=== PATIENT | male | born 1935 | race Caucasian/White ===

== ENCOUNTER 2021-04-03 04:04 | Inpatient (IN) | payer OTHER ==
[~2021-04-03] VITALS: Ht 182.9 cm; Wt 73.3 kg
--- NOTE | ~2021-04-03 | HC ---
[facility] [place] [address] CONSULTATION Name: MAME CARDONA Room #: 205-P ADM IN M.R.#: [id number] Admission: 04/03/21 Attend Phys: Len Coon MD Discharge: Date of : 37 Report #: [id number] THIS REPORT FOR: cc: Adrianna Patel MD, Amir R. MD Khosla,Alon Stack MD ~ DATE OF SERVICE: 04/03/2021 HISTORY OF PRESENT ILLNESS: This 86-year-old male patient was here, was evaluated by me for stroke-like symptoms. The patient is a very poor historian. In fact, he has no significant memory. I initially talked to him and subsequently was able to reach the patient's and talked to her. As I understand, this patient was admitted to [facility] in [place] in the middle of the last year. He had passed out and was confused. He was in the hospital for several days. As I understand from the , they did not come up with any diagnosis on this patient. He had another episode of passing out spell. He becomes confused after those passing out spells and he has been confused and last seen well was yesterday. He is on multiple medications, but I do not have the list of the medication this patient is on. REVIEW OF SYSTEMS: From the , she said he is losing some memory. He will not remember something which he should remember. When I asked her if he usually remember months and dates, she says he usually does. There was some question of aphasia when this patient came in. Presently, he does not talk much, but can form some words, but he is not even oriented. That makes the history taking pretty difficult. He did not complain to me any eye, ENT, cardiac, respiratory, GI, , musculoskeletal, constitutional, dermatological, hematological, psychiatric, throat, allergic symptom associated with present symptomatology. PAST MEDICAL HISTORY: Positive for episodes of passing out. FAMILY HISTORY: Negative for congenital epilepsy. SOCIAL HISTORY: The says the patient does not smoke or drink any alcohol. PHYSICAL EXAMINATION: The patient's examination indicates he is alert. He is responsive. He can talk to me, but he did not tell me what month it is, what date is, what hospital he is in. Cranial nerve examination 2-12 was carried out. It is difficult for me to tell, but I do not see any gross facial palsy in this patient. He moves both sides and looks like he moves them symmetrical. He has antigravity and anti-resistance movement, but tough to tell whether that is normal or somewhat diminished. I tried to do the position sense, either he does not understand the instructions or does not have a position sense, I do not think he understands the instructions. He did not understand the instruction even to do the cerebellar sign. There is no meningeal sign. He did not cooperate with the fundus examination. His tone looks symmetrical. Cardiac [address] [address] CONSULTATION Name: MAME CARDONA Room #: 205-P ADM IN M.R.#: [id number] Admission: 04/03/21 Attend Phys: Len Coon MD Discharge: Date of : 37 Report #: [id number] examination does appear to be showing irregularity. I talked to the patient's nurse and she indicated that the patient is showing multiple ectopics on the monitor. He does not have any respiratory difficulty. His pulses are difficult to feel, but he does not have any edema, cyanosis, or jaundice. No thyroid mass. It looks like his hearing and vision is adequate. Blood pressure is 107/52, it has gone lower than that, respiration is 20, pulse is 82. LABORATORY DATA: Indicate a white count of 16.4. He has a protein in the urine and for some reason, he is now on prednisone. Difficult to tell if WBC increase is because of the prednisone or not. IMPRESSION: Pretty difficult to form in this patient. He needs further workup to see what the cause of his passing out spell is. I think we will evaluate him for stroke by doing an MRI if he cooperates. His CT angiogram was suboptimal and difficult to tell, so I am going to do a carotid Doppler in this patient. We will get an EEG done. We will get a TSH, vitamin B12 done and rest of the workup will depend upon the MRI and other testing. I discussed that with the patient and the and I asked him to get his records from [facility]. We will follow this patient, but presently multiple things need to be addressed in this patient and we will do that after the MRI is available. Thank you very much for this referral. By: [id number] 0031 Alon Vargas MD /nt
--- NOTE | ~2021-04-03 | EMS ---
[address] [address] EMS Patient Care Report Name: MAME CARDONA Room #: REG VANNESA Rollins#: [id number] Admission: 04/03/21 Attend Phys: Discharge: Date of : 37 Report #: [id number] THIS REPORT FOR: //name// Report Transmitted: 04/03/2021 03:36 EMS Care Summary [facility] MED-ACT Incident [id number] @ 04/03/2021 03:12 Incident Location [address] [place] [address] Patient MAME CARDONA Male, 86 Years 1935 Patient Address [address] [place] [address] Patient History Hyperlipidemia, Patient Allergies No known allergies, Patient Medications Atorvastatin, Finasteride, Prednisone, Methotrexate, Chief Complaint "I found him on the shower floor." Disposition Transported No Lights/[place] Dispatch Reason [place] Transported To [facility] Narrative History: Pt's reports she found the pt on the floor in the shower, unable to get up, at 0300 this morning. Pt's reports she last saw the pt at approximately 2300 last night as he finished watching the [employer] basketball game. Pt reports he does not know how he ended up on the floor in the shower. Pt [address] [address] EMS Patient Care Report Name: MAME CARDONA Room #: REG VANNESA Rollins#: [id number] Admission: 04/03/21 Attend Phys: Discharge: Date of : 37 Report #: [id number] reports he is not in any pain. Pt's states the pt does not appear to be responding as he normally does. Pt's reports the pt is not on any blood thinners. Pt denies any shortness of breath, nausea, pain, or other recent illness. No other complaints noted at this time. Assessment: Pt was found seated in the corner of the shower, leaning on his right side against the wall. Pt initially has asymmetrical strength in his upper extremities, and a R-sided facial droop. Pt ABCs intact. Pt was confused, but alert. See assessment tab for detailed physical exam findings and pertinent negatives. Treatment: Primary. Pt lifted from floor to seated position on toilet. VS. HPI. Physical exam. PMH. Pt lifted to EMS stretcher and secured in semi-mendez's position. In ambulance IV attempt x1 unsuccessful. 12-lead. Pt has improvement to strength in R upper extremity. Reassessment shows pt negative for arm drift on [place] stroke scale. Transport: En route, continue with on-going assessment. IV established 20g in pt's L wrist. [place] determined as destination due to closest primary stroke center. Pt VS remained stable. Destination: Pt was brought via stretcher to ED bed 1. Pt moved via lateral sheet drag to hospital bed. Report provided to attending RN and MD. Staff signed due to pt's AMS. Care transferred. Initial Vitals @03:39Temp: 97.4F,Glucose: 204, @03:42P: 92,SpO2: 96,TN Suspected: false @03:34P: 88,BP: 157/85,SpO2: 97, @03:28P: 84,SpO2: 70, @03:35P: 90,BP: 134/86,SpO2: 95, @03:26P: 86,R: 18,BP: 152/89,Pain: 0/10,GCS: 14,SpO2: 98,Revised Trauma: 12, @03:53P: 99,R: 18,BP: 133/79,GCS: 15,SpO2: 98,Revised Trauma: 12, Impression Stroke Procedures @03:39 IV Therapy - Saline Lock 0cc (18 ga) Site: Antecubital-Right Response: UnchangedFailed @03:50 IV Therapy - Saline Lock 10cc (20 ga) Site: Forearm-Left Response: UnchangedSucceeded @03:42 [place] [address] EMS Patient Care Report Name: MAME CARDONA Room #: REG [facility].#: [id number] Admission: 04/03/21 Attend Phys: Discharge: Date of : 37 Report #: [id number] Timeline 03:09,Call Received 03:09,Psap Call 03:12,Dispatched 03:14,En Route 03:21,On Scene 03:22,At Patient 03:26,BP: 152/89 M,PULSE: 86,RR: 18 R,SPO2: 98 Ox,ETCO2: ,BG: ,PAIN: 0,GCS: 14, 03:28,BP: / M,PULSE: 84,RR: R,SPO2: 70 Ox,ETCO2: ,BG: ,PAIN: ,GCS: , 03:34,BP: 157/85 M,PULSE: 88,RR: R,SPO2: 97 Ox,ETCO2: ,BG: ,PAIN: ,GCS: , 03:35,BP: 134/86 M,PULSE: 90,RR: R,SPO2: 95 Ox,ETCO2: ,BG: ,PAIN: ,GCS: , 03:39,BP: / M,PULSE: ,RR: R,SPO2: Ox,ETCO2: ,B,PAIN: ,GCS: , 03:39,IV Therapy - Saline Lock 0cc 18 ga Site: Antecubital-Right,Response: UnchangedFailed, 03:42,12-Lead ECG, 03:42,BP: / M,PULSE: 92,RR: R,SPO2: 96 Ox,ETCO2: ,BG: ,PAIN: ,GCS: , 03:49,Depart Scene 03:50,IV Therapy - Saline Lock 10cc 20 ga Site: Forearm-Left,Response: UnchangedSucceeded, 03:53,BP: 133/79 M,PULSE: 99,RR: 18 R,SPO2: 98 Ox,ETCO2: ,BG: ,PAIN: ,GCS: 15, 03:57,At Destination 04:16,Call Closed Disclaimer v1.1 Copyright 2021 [employer] This EMS Care Summary contains data elements from the applicable legal record (which may be displayed differently). It is designed to provide pertinent information for the following purposes: continuity of care, clinical quality, and state data reporting. The complete legal record is available to ED staff and administrators of the receiving hospital in [employer] Patient Tracker. All data is provided "as is."
--- NOTE | ~2021-04-03 | EEG ---
[facility] [place] [address] ELECTROENCEPHALOGRAM Name: MAME CARDONA Room #: 205-P ADM IN M.R.#: [id number] Admission: 04/03/21 Attend Phys: Len Coon MD Discharge: Date of : 37 Report #: [id number] THIS REPORT FOR: //name// DATE OF SERVICE: 04/04/2021 This patient is being evaluated for altered mental status. EEG was done by placing the electrode by standard 10-20 system of electrode placement. Both referential and sequential montages were used for recording. Background activity in this patient's EEG is about 7 Hz and 30 microvolt. It is a poorly formed background activity. The patient went to sleep that was associated with bilateral slowing in vertex sharp waves. Photic stimulation is unremarkable. Throughout the record, no active epileptiform activity was noticed. IMPRESSION: This is a disorganized and poorly formed background activity. That can be consistent with encephalopathy, but can also occur with a diffuse damage to the brain. Clinical correlation is recommended. By: [id number] 1218 Alon Vargas MD /nt
[2021-04-03 04:04] VITALS: BP 118/63
--- NOTE | 2021-04-03 05:00 | NUR ---
ATTEMPTED TO CALL PT'S AT [phone] TO OBTAIN PT'S PHARMACY AND MEDS WITHOUT AN ANSWER.
[2021-04-03 05:03] LABS: CALCIUM 10.7 mg/dL (8.5-10.1); CREATININE 1.9 mg/dL (0.7-1.3); POTASSIUM 4.1 mmol/L (3.5-5.1)
[2021-04-03 05:04] LABS: ABSOLUTE NEUTROPHILS 14.4 thou/uL (1.4-8.2); BASOPHILS 0.3 % (0.0-2.0); HEMATOCRIT 40.5 % (42.0-52.0); HEMOGLOBIN 13.6 gm/dL (14.0-18.0); LYMPHOCYTES 2.6 % (24.0-44.0); MCH 30.1 pg (26.0-34.0); MCHC 33.5 g/dL (28.0-37.0); MCV 89.8 fL (80.0-100.0); PLATELET COUNT 208 thou/uL (150-400); POLYS 88.1 % (36.0-66.0); RBC 4.51 mil/uL (4.50-6.00); RDW 14.6 % (10.5-14.5); WBC 16.4 thou/uL (4.0-11.0)
[2021-04-03 05:08] LABS: ALBUMIN 3.7 g/dL (3.4-5.0); APTT 21.2 Seconds (24.5-32.8); INR 1.03; PROTIME 11.2 Seconds (10.5-12.1); TOTAL BILIRUBIN 0.5 mg/dL (0.2-1.0)
--- NOTE | 2021-04-03 07:10 | NUR ---
received report from Linda/weight shifter RN. Assuming patient care at this time.
[2021-04-03 08:14] LABS: URINE BILIRUBIN NEGATIVE (Negative); URINE BLOOD 3+ (Negative); URINE COLOR YELLOW; URINE GLUCOSE-RANDOM* TRACE (Negative); URINE KETONES NEGATIVE (Negative); URINE LEUKOCYTES-REFLEX NEGATIVE (Negative); URINE NITRITE-REFLEX NEGATIVE (Negative); URINE PROTEIN (DIPSTICK) 2+ (Negative); URINE SPECIFIC GRAVITY 1.015 (1.005-1.035); URINE UROBILINOGEN 0.2 E.U./dl (0.2-1.0)
[2021-04-03 08:15] LABS: URINE CLARITY HAZY
[2021-04-03 08:17] LABS: CASTS None Seen /LPF (None Seen); SQUAMOUS 0-3 Few /LPF (0-3); URINE WBC-REFLEX 0-5 Rare /HPF (0-5)
[2021-04-03 08:18] LABS: BACTERIA-REFLEX None Seen /HPF (None Seen); CRYSTALS None Seen /LPF (None Seen); URINE RBC >20 Many /HPF (NONE SEEN)
[2021-04-03 08:22] LABS: AMP/METHAMP Negative (Negative); BARBITURATES Negative (Negative); BENZODIAZEPINES Negative (Negative); COCAINE Negative (Negative); METHADONE Negative (Negative); OPIATES Negative (Negative); PCP Negative (Negative)
--- NOTE | 2021-04-03 10:03 | EKG ---
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
--- NOTE | 2021-04-03 12:16 | NUR ---
Pt reports he does not have any drug allergies, attempted to call to confirm. No answer. Called [facility], they report pt has NKDA.
--- NOTE | 2021-04-03 12:25 | NUR ---
PT ADMITTED RELATED TO AMS, STROKE R/O, AND APHASIA. CM REVEIWED CHART AND SPOKE WITH CARE TEAM. CM CALLED AND SPOKE WITH PT'S SPOUSE DAT CELL . SHE INDICATED THAT SHE AND SPOKE RESIDE IN A HOUSE WITH 1 STEP TO ENTER THROUGH THE GARAGE AND FRONT AND 14 STEPS TO BASEMENT. SHE INDICATED THAT PT HAD BEEN INDEPEDNENT WITH GAIT AND ADLS PRINTED CIRCUIT BOARDS CONTACT PRINTER. SHE INDICATED THAT PT HAD BEEN WALKING A MILE A DAY WITH A NEIGHBOR PRINTED CIRCUIT BOARDS CONTACT PRINTER. PT SEES A DR. REY AND A DERMATOLIGIST. NEURO WAS CONSULTED. PT AHD A NUMBER OF CT SCANS. SPOUSE INDICATED SHE ANTICPATES PT RETURNING HOME ONCE MEDICALLY STABLE. CM FOLLOWING REGARDING DC PLANNING NEEDS.
[2021-04-03 13:13] VITALS: BP 107/52
[2021-04-03 15:40] VITALS: BP 107/58
--- NOTE | 2021-04-03 16:58 | NUR ---
ASSUMED CARE OF PATIENT AT 1400. VS OBTAINED, TELE PACK PLACED ON PATIENT AND ORDERS AKNOWLEDGED. ADMISSION ASSESSMENT AND HISTORY COMPLETED. BEDSIDE SWALLOW COMPLETED WITH NO COUGH NOTED. MRI SET TO BE COMPLETED TOMORROW, MRI SCREENING SHEET COMPLETED. PATIENT A&O TO PERSON AND PLACE, BUT CALLS OUT APPROPRIATELY. BED ALARM IN PLACE, YELLOW SOCKS ON AND SCD'S ON. NS INFUSING INTO LEFT WRIST IV. NIH COMPLETED ON ADMISSION, SCORED A 5 WITH EXPRESSIVE APHASIA.
[2021-04-03] MEDS ORDERED: FINASTERIDE5 MG PO (17:22)
[2021-04-03] MEDS ORDERED: ATORVASTATIN CA10 MG PO (17:22)
[2021-04-03] MEDS ORDERED: METHOTREXATE 22.5 M1 PO (17:23)
[2021-04-03] MEDS ORDERED: PREDNISONE 5 MG5 MG PO (17:24)
[2021-04-03] MEDS ORDERED: FLORINEF ACETA0.1 MG PO (17:24)
[2021-04-03] MEDS ORDERED: FOLIC ACID1 MG PO (17:25)
[2021-04-03 20:16] VITALS: BP 104/48
[2021-04-04 03:16] LABS: HEMATOCRIT 38.4 % (42.0-52.0); HEMOGLOBIN 12.9 gm/dL (14.0-18.0); MCH 30.4 pg (26.0-34.0); MCHC 33.6 g/dL (28.0-37.0); MCV 90.6 fL (80.0-100.0); RBC 4.24 mil/uL (4.50-6.00); RDW 14.7 % (10.5-14.5); WBC 11.9 thou/uL (4.0-11.0)
[2021-04-04 03:54] VITALS: BP 131/68
[2021-04-04 04:17] LABS: CALCIUM 9.4 mg/dL (8.5-10.1); CREATININE 1.3 mg/dL (0.7-1.3)
--- NOTE | 2021-04-04 05:55 | NUR ---
ASSESSMENTS CHARTED, MEDS CHARTED GIVEN. PATIENT FOUND ON FLOOR AT HOME BY . PT DOES NOT REMEMBER WHAT BROUGHT HIM IN. DROWSY. RESTING IN BED DURING SHIFT. PATIENT SCHEDULED FOR ULTRASOUND OF CAROTIDS AND MRI OF HEAD THIS MORNING. CONTINUING CARES.
[2021-04-04 07:30] VITALS: BP 145/74
[2021-04-04 12:21] VITALS: BP 150/74
--- NOTE | 2021-04-04 12:46 | NUR ---
I have reviewed the documentation by LYNDON HERNANDEZ from 04/04/21 to 04/04/21 and I concur with it. GALE BO, PT, DPT
[2021-04-04 15:35] VITALS: BP 133/67
[2021-04-04 20:38] VITALS: BP 147/95
[2021-04-05 02:31] LABS: HEMATOCRIT 35.8 % (42.0-52.0); HEMOGLOBIN 12.2 gm/dL (14.0-18.0); MCH 30.6 pg (26.0-34.0); MCV 89.9 fL (80.0-100.0); RBC 3.98 mil/uL (4.50-6.00); RDW 14.6 % (10.5-14.5); WBC 10.5 thou/uL (4.0-11.0)
[2021-04-05 02:44] LABS: CALCIUM 8.5 mg/dL (8.5-10.1); CREATININE 0.7 mg/dL (0.7-1.3)
[2021-04-05 04:49] VITALS: BP 177/86
--- NOTE | 2021-04-05 05:08 | NUR ---
ASSESSMENTS CHARTED, MEDS CHARTED GIVEN. PATIENT RESTING IN BED DURING SHIFT STILL ALERT TO SELF ONLY. CONFUSION AND MEMORY ISSUES STILL PRESENT. IN BIGEMINY DURING SHIFT. ON ROOM AIR, MAINTENANCE FLUID RUNNING. UP WITH STBY ASSIST. PATIENT TO HAVE MRA OF [place] [facility] [place] TODAY. CONTINUE CARES.
[2021-04-05 07:30] VITALS: BP 156/77
--- NOTE | 2021-04-05 09:13 | NUR ---
SAP TRAINER TO SEE PATIENT. PT SLEEPING AND ARISES TO VERBAL STIMULI. PT A&O X3. SPEACH CLEAR. NO UNILATERAL WEAKNESS NOTED IN ALL EXT. PT EDUCATED ON STROKE AND PLAN OF CARE. PT VERBALIZES UNDERSTANDING. WILL CONTINUE TO MONITOR AND FOLLOW PATIENT THROUGHOUT STAY. CONTACT INFO GIVEN.
[2021-04-05 11:15] VITALS: BP 119/50
--- NOTE | 2021-04-05 12:24 | NUR ---
CM CALLED TO SPEAK TO PTS DAT. EDUCATION PROVIDED ON REHAB RECOMMENDATIONS ONCE MEDICALLY STABLE TO DISCHARGE. SHE CONFIRMED CM PT GOAL TO BE DISCHARGED HOME FOLLOWING REHAB AND ABLE TO PROVIDE SUPPORT FOR HIM SHOULD HE REQUIRE IT. CM WILL CONTINUE TO FOLLOW FOR DC PLANNING.
[2021-04-05 13:25] LABS: CHOLESTEROL 136 mg/dL (<200); HDL CHOLESTEROL 57 mg/dL (>40); LDL CHOLESTEROL 52 mg/dL (<100); TC:HDL 2.4 Ratio (Not establshd); TRIGLYCERIDE 139 mg/dL (<150); VLDL 28 mg/dL (<40)
--- NOTE | 2021-04-05 14:25 | 2DMMODE ---
[facility] [place] [address] 2 D/M-MODE ECHOCARDIOGRAM Name: MAME CARDONA Room #: 205-P ADM IN M.R.#: [id number] Admission: 04/03/21 Attend Phys: Len Coon MD Discharge: Date of : 37 Report #: [id number] THIS REPORT FOR: cc: Adrianna Patel MD, Amir R. MD Lammoglia, Francisco J. MD ~ ADDENDUM APPROVED REPORT Study performed: 04/05/2021 12:18:40 EXAM: Comprehensive 2D, Doppler, and color-flow Echocardiogram Patient Location: Bedside Room #: 205 Status: routine BSA: 1.94 HR: 63 bpm BP: 156/77 mmHg Rhythm: NSR Other Information Study Quality: Good Indications CVA/TIA Hypertension/HDD Echo Enhancing Agent Indication: Rule out Shunt Agent(s) / Amount(s) Used: Agitated Saline 7 cc 2D Dimensions RVDd: 42.08 mm IVSd: 11.66 (7-11mm) LVOT Diam: 19.93 (18-24mm) LVDd: 47.96 mm PWd: 12.01 (7-11mm) Ascending Ao: 31.96 (22-36mm) LVDs: 30.30 (25-40mm) Left Atrium: 35.95 (27-40mm) Aortic Root: 31.89 mm IVC: 21.00 mm Volumes Left Atrial Volume (Systole) Single Plane 4CH: 55.23 mL Single Plane 2CH: 52.37 mL LA ESV Index: 30.00 mL/m2 [facility] [address] [place] [address] 2 D/M-MODE ECHOCARDIOGRAM Name: DULCEMAME Room #: 205-P [facility] IN [facility].#: [id number] Admission: 04/03/21 Attend Phys: Len Coon MD Discharge: Date of : 37 Report #: [id number] Aortic Valve AoV Peak Raj.: 1.46 m/s AO Peak Gr.: 8.49 mmHg LVOT Max P.62 mmHg LVOT Max V: 1.08 m/s ELOY Vmax: 2.30 cm2 Mitral Valve E/A Ratio: 0.6 MV Decel. Time: 356.94 ms MV E Max Raj.: 0.53 m/s MV A Raj.: 0.92 m/s MV PHT: 103.51 ms IVRT: 166.09 ms Pulmonary Valve PV Peak Raj.: 1.12 m/s PV Peak Gr.: 4.98 mmHg Pulmonary Vein P Vein S: 0.35 m/s P Vein A: 0.29 m/s P Vein D: 0.26 m/s P Vein A Dur.: 92.3 msec P Vein S/D Ratio: 1.35 Tricuspid Valve TR Peak Raj.: 2.76 m/s TR Peak Gr.: 30.55 mmHg PA Pressure: 41.00 mmHg Left Ventricle The left ventricle is normal size. There is normal LV segmental wall motion. Mild concentric left ventricular hypertrophy. The left ventricular systolic function is normal. The left ventricular ejection fraction is within the normal range. LVEF is 60-65%. Grade I - abnormal relaxation pattern. Right Ventricle The right ventricle is normal size. The right ventricular systolic function is normal. Atria Left atrium is at the upper limits of normal. Injection of contrast documented no interatrial shunt. Right atrium is at the upper limits of normal. Aortic Valve The aortic valve is normal in structure. The Aortic valve is sclerotic. No aortic regurgitation is present. There is no aortic [place] [id number] 2 D/M-MODE ECHOCARDIOGRAM Name: MAME CARDONA Room #: 205-P [facility] IN ..#: [id number] Admission: 04/03/21 Attend Phys: Len Coon MD Discharge: Date of : 37 Report #: [id number] valvular stenosis. Mitral Valve The mitral valve is normal in structure. Mild mitral regurgitation. No evidence of mitral valve stenosis. Tricuspid Valve The tricuspid valve is normal in structure. There is mild tricuspid regurgitation. Estimated PAP 41 mmHg. There is moderate pulmonary hypertension. Pulmonic Valve The pulmonary valve is normal in structure. Trace pulmonic regurgitation. Great Vessels The aortic root is normal in size. IVC is dilated and collapses <50% with inspiration. Pericardium There is no pericardial effusion. <Conclusion> The left ventricle is normal size. Mild concentric left ventricular hypertrophy. LVEF is 60-65%. Left atrium is at the upper limits of normal. Right atrium is at the upper limits of normal. The aortic valve is normal in structure. The Aortic valve is sclerotic. The mitral valve is normal in structure. Mild mitral regurgitation. The tricuspid valve is normal in structure. There is mild tricuspid regurgitation. Estimated PAP 41 mmHg. There is moderate pulmonary hypertension. The pulmonary valve is normal in structure. Trace pulmonic regurgitation. The aortic root is normal in size. There is no pericardial effusion. Injection of contrast documented no interatrial shunt. <ELECTRONICALLY SIGNED> By: Arnulfo Logan MD 04/05/21 1425 1425 1425 Arnulfo Logan MD /INF
[2021-04-05 16:00] VITALS: BP 134/62
--- NOTE | 2021-04-05 16:14 | NUR ---
I have reviewed the documentation by LYNDON HERNANDEZ from T to 04/05/21 and I concur with it. OLGA HOFFMANN
--- NOTE | 2021-04-05 16:31 | NUR ---
SPOKE WITH WINDING MACHINE OPERATOR MITCHELL PERAZA AND STATED IT WAS OKAY FOR PATIENT TO RECIEVE ASPIRIN EVEN THOUGH HES GOING FOR A LOOP RECOREDER AND HAKEEM TOMORROW.
[2021-04-05 19:45] VITALS: BP 139/76
[2021-04-06 03:07] LABS: HEMATOCRIT 35.5 % (42.0-52.0); HEMOGLOBIN 12.2 gm/dL (14.0-18.0); MCH 30.6 pg (26.0-34.0); MCHC 34.4 g/dL (28.0-37.0); MCV 88.9 fL (80.0-100.0); RBC 3.99 mil/uL (4.50-6.00); RDW 14.3 % (10.5-14.5)
[2021-04-06 03:12] LABS: APTT 28.1 Seconds (24.5-32.8); INR 0.99; PROTIME 10.8 Seconds (10.5-12.1)
[2021-04-06 03:59] LABS: ALBUMIN 2.8 g/dL (3.4-5.0); CALCIUM 8.5 mg/dL (8.5-10.1); CREATININE 0.8 mg/dL (0.7-1.3); POTASSIUM 3.4 mmol/L (3.5-5.1); TOTAL BILIRUBIN 0.7 mg/dL (0.2-1.0); TOTAL PROTEIN 5.5 g/dL (6.4-8.2)
[2021-04-06 04:09] VITALS: BP 158/73
--- NOTE | 2021-04-06 05:22 | NUR ---
PT IS A&OX2-3 WITH CONFUSION NOTED. HUTCHINSON IN PLACE TO DD. PT FORGETS HE HAS A HUTCHINSON AND ATTEMPTS TO GET OUT OF BED, STATING HE NEEDS TO URINATE; EASILY REDIRECTABLE. NPO AFTER MIDNIGHT WITH PLANS FOR LOOP RECORDER IMPLANT, MRA OF [place] TODAY. VSS THROUGHOUT THE NIGHT. PT SLEPT MOST OF THE SHIFT. WILL CONTINUE TO OBSERVE FOR CHANGES
[2021-04-06 07:46] VITALS: BP 174/77
--- NOTE | 2021-04-06 09:28 | TEE ---
[facility] [place] [address] TRANSESOPHAGEAL ECHOCARDIOGRAM Name: MAME CARDONA Room #: 205-P ADM IN M.R.#: [id number] Admission: 04/03/21 Attend Phys: Len Coon MD Discharge: Date of : 37 Report #: [id number] THIS REPORT FOR: cc: Adrianna Patel MD, Amir R. MD Santiago, Patrick MD [facility] ~ APPROVED REPORT Study performed: 04/06/2021 08:32:23 EXAM: Transesophageal Echocardiogram Patient Location: In-Patient Room #: 205 Status: routine BSA: 1.94 HR: 66 bpm BP: 189/90 mmHg Rhythm: NSR Other Information Study Quality: Adequate Indications CVA Procedure After obtaining informed consent, patient underwent transesophageal echo in the [facility] [employer]. Type of Sedation : Conscious Sedation Sedation was administered by Kizzy Cadena RN. Sedation start time: 839 Case end Time: 903 Sedation was achieved intravenously with: Versed (3.5) Fentanyl (50) Transesophageal probe was inserted and advanced into esophagus without difficulty by Romeo Altamirano MD/Walt Childress MD. Echo enhancement indication: R/O Septal defect. Echo enhancement agent administered: Agitated Saline The HAKEEM was performed without complications. Throughout the procedure, the blood pressure, pulse oximetry, cardiac rhythm, and rate were monitored. The patient tolerated the procedure without adverse effects. Recovery from conscious sedation was uneventful and vital signs were stable. [facility] [address] [place] [address] TRANSESOPHAGEAL ECHOCARDIOGRAM Name: MAME CARDONA Room #: 205-P ADM IN M.R.#: [id number] Admission: 04/03/21 Attend Phys: Len Coon MD Discharge: Date of : 37 Report #: [id number] Left Ventricle The left ventricle is normal size. There is normal LV segmental wall motion. Mild concentric left ventricular hypertrophy. Left ventricular systolic function is normal. LVEF is 60%. Right Ventricle The right ventricle is normal size. The right ventricular systolic function is normal. Atria Left atrium is at the upper limits of normal. The right atrium size is normal. No thrombus is visualized in the left atrium or appendage. No shunting noted by contast bubble injection. Aortic Valve The Aortic valve is sclerotic. No aortic regurgitation is present. There is no aortic valvular stenosis. Mitral Valve The mitral valve is normal in structure. Mild mitral regurgitation. Tricuspid Valve The tricuspid valve is normal in structure. Unable to assess PA pressure. Pulmonic Valve The pulmonary valve is normal in structure. Great Vessels The aortic root is normal in size. The ascending aorta is normal. Pericardium There is no pericardial effusion. <Conclusion> Consent was obtained Timeout was performed Esophageal probe advanced without difficulty Left atrial appendage, small, negative for obvious mass or clot Mild left atrial enlargement Normal left ventricle size/mild LVH ejection fraction of 55-60% Normal right heart size/function Aortic valve mildly sclerotic without stenosis [facility] [address] [place] [address] TRANSESOPHAGEAL ECHOCARDIOGRAM Name: MAME CARDONA Room #: 205-P ADM IN M.R.#: [id number] Admission: 04/03/21 Attend Phys: Len Coon MD Discharge: Date of : 37 Report #: [id number] Mild mitral valve insufficiency No tricuspid valve insufficiency No pericardial effusion Aorta minimal calcification throughout No evidence of ASD/VSD by color flow/bubble study Patient tolerated procedure well. <ELECTRONICALLY SIGNED> By: Walt Childress MD, FACC 04/06/21927 7 7 Walt Childress MD, FACC /INF
[2021-04-06 10:33] VITALS: BP 153/66
--- NOTE | 2021-04-06 11:59 | NUR ---
TOOK OVER PATIENT CARE AT 0700. PT RESTING IN BED. PT WAS TAKEN BY CDL SERVICE TECHNICIAN FOR LOOP RECORDER PLACEMENT AND HAKEEM. PT BACK FROM PROCEDURE AND POST-PROCEDURE VITALS TAKEN. PT RESTING COMFORTABLY AT THIS TIME. C/O SORE THROAT; LIKELY DUE TO PROCEDURE. OFFERED PRN TYLENOL BUT PATIENT REFUSED. ASSESSSMENTS CHARTED. WILL CONTINUE TO MONITOR. FALL PRECAUTIONS IN PLACE.
--- NOTE | 2021-04-06 14:45 | NUR ---
PT REMAINS AGREEABLE TO DISCHARGING TO 5N ONCE MEDICALLY STABLE TO DC. AUTH HAS BEEN SUBMITTED FOR AUTH. NO FURTHER CM INDICATED AT THIS TIME.
--- NOTE | 2021-04-06 15:39 | NUR ---
HOSPITALIST ASKED THAT AUTH BE REQUESTED FROM PATIENT'S INSURANCE WITH GOAL OF ADMISSION BY 04/09/21. JAS[employer] CONTACTED AND CLINICAL INFORMATION FAXED THIS DATE, 04/06/21. AWAITING INSURANCE RESPONSE. THANK YOU FOR THIS REFERRAL.
[2021-04-06 15:53] VITALS: BP 142/62
--- NOTE | 2021-04-06 17:13 | NUR ---
I have reviewed the documentation by SOL ZAIDI from 04/06/21 to 04/06/21 and I concur with it. OLGA HOFFMANN
[2021-04-06 20:15] VITALS: BP 143/77
--- NOTE | 2021-04-07 04:09 | NUR ---
RECEIVED THE PATIENT AT 1900H.ASSESSMENT DONE CHARTED.WITH HUTCHINSON CATHETER INTACT.MEDICATION PER MAY.ALL NEEDS ATTENDED.TO CONTINOUSLY MONITOR.
[2021-04-07 04:45] VITALS: BP 165/83
[2021-04-07 11:30] VITALS: BP 158/81
[2021-04-07 12:00] VITALS: BP 158/81
--- NOTE | 2021-04-07 14:25 | NUR ---
TOOK OVER CARE OF PATIENT AT 0700. PT RESTING IN BED DURING THIS TIME. PT AMBULATED TO CHAIR SEVERAL TIMES FOR MEALS. PT ON RA; DENIES SOA, COUGHING, DIZZINESS, CHEST PAIN. PT AMBULATED W/SBA. ASSESSMENTS CHARTED. MEDS GIVEN CHARTED. FALL PRECAUTIONS IN PLACE. CALL LIGHT WITHIN REACH.
[2021-04-07 16:30] VITALS: BP 107/79
[2021-04-07 19:50] VITALS: BP 131/73
[2021-04-08 03:44] VITALS: BP 153/82
--- NOTE | 2021-04-08 04:44 | NUR ---
RECEIVED THE PATIENT AT 1900H.ON ROOM AIR BREATHING SPONTANEOUSLY.WITH HUCTHINSON CATHETER INTACT.NO COMPLAINTS OF PAIN.MEDS GIVEN PER MAY.ALL NEEDS ATTENDED.TO CONTINOUSLY MONITOR.
[2021-04-08 07:50] VITALS: BP 152/69
[2021-04-08 11:20] VITALS: BP 126/63
--- NOTE | 2021-04-08 12:56 | LINQ ---
Formerly [facility] [place] [address] LINQ PROCEDURE REPORT Name: MAME CARDONA Room #: 205-P ADM IN M.R.#: [id number] Admission: 04/03/21 Attend Phys: Len Coon MD Discharge: Date of : 39 Report #: [id number] THIS REPORT FOR: cc: Adrianna Patel MD, Amir R. MD Lammoglia, Francisco J. MD ~ APPROVED REPORT Study performed: 04/06/2021 14:08:35 Patient Status: In-Patient Room #: Event Personnel: Dr Abdifatah Logan Exam: Insertion of an implantable loop recorder Indications: Multiple cryptic strokes The patient is a 86 year-old male with a history of Multiple embolic cryptic strokes. Conscious Sedation Start time: 10:10 End Time: 10:11 Implanted Devices: Medtronic Reveal Linq [id number] Expiration date: 2021-12-21 SN:[id number] Procedure The patient underwent informed consent. We discussed the details of the procedure including the risks, which include, but not limited to bleeding, infection, vascular damage, cardiac perforation, and pneumothorax. The left chest was prepped and draped in usual sterile manner. Utilizing 1% lidocaine a small wheal was raised. The 25-gauge spinal needle was then used to infuse the proposed insertion tract with 1% lidocaine. An 11 blade was then utilized to make a small incision. Both sharp and blunt dissection were utilized to develop a pocket. The device was deployed with the included deployment tool without difficulty. Subcutaneous tissue was closed with 2 simple interrupted sutures and the skin was closed with a running subcuticular 3-0 Vicryl. Dermabond Steri-Strips 4 x 4 OpSite were then utilized. Patient tolerated procedure well Electrode Parameters P Wave: 0.8 Formerly [facility] [place] [address] [employer]alio PROCEDURE REPORT Name: MAME CARDONA Room #: 205-[facility] IN ..#: [id number] Admission: 04/03/21 Attend Phys: Len Coon MD Discharge: Date of : 39 Report #: [id number] Conclusion 1. Successful insertion of a Medtronic L IN Q implantable loop recorder Recommendations 1. Routine postimplantation protocol <ELECTRONICALLY SIGNED> By: Arnulfo Logan MD 04/08/21 [id number] Arnulfo Logan MD /INF
--- NOTE | 2021-04-08 13:40 | NUR ---
ASSUMED CARE OF PATIENT AT 0700. PATIENT A&OX4, RA, SR ON TELE. NO C/O PAIN. PATIENT UP TO AMBULATE TO DETERMINE IF HE COULD GO HOME VERSUS 5N. PATIENT AMBULATED AROUND THE ENTIRE UNIT AND WAS STABLE ON FEET. MD NOTIFIED. HUTCHINSON CATH AND FLUIDS DC'D. PATIENT TO DC HOME WITH . IV AND TELE MONITOR DC'D AND REMOVED. PATIENT PROGRESSED TOWARD POC.
[2021-04-08] MEDS ORDERED: ADULT LOW DOSE81 MG PO (13:50)
[2021-04-08] MEDS ORDERED: NORVASC5 MG PO (13:50)
[2021-04-08 13:54] VITALS: BP 126/63
== END 2021-04-08 15:04 | disposition home or self-care (01) | DRG 40 ==
LOC: ER 04:04 → EROBS 07:43 → 2N 07:43
PROVIDERS: Emergency Medicine; Internal Medicine Cardiovascular Disease; Psychiatry & Neurology Neuromuscular Medicine; ADMIT Hospitalist; ATTEND Hospitalist
PROC: 0JH602Z Insertion of Monitoring Device into Chest Subcutaneous Tissue and Fascia, Open Approach (ICD-10-PCS; principal; 2021-04-06)
PROC: B24BZZ4 Ultrasonography of Heart with Aorta, Transesophageal (ICD-10-PCS; principal; 2021-04-06)
DX: I63.9 Cerebral infarction, unspecified (principal); J18.9 Pneumonia, unspecified organism; G93.40 Encephalopathy, unspecified; E27.40 Unspecified adrenocortical insufficiency; Z20.822 Contact with and (suspected) exposure to COVID-19; R47.01 Aphasia; I10 Essential (primary) hypertension; E78.5 Hyperlipidemia, unspecified; D72.829 Elevated white blood cell count, unspecified; E78.00 Pure hypercholesterolemia, unspecified; R53.81 Other malaise; M35.9 Systemic involvement of connective tissue, unspecified; N40.0 Benign prostatic hyperplasia without lower urinary tract symptoms; R13.10 Dysphagia, unspecified; R29.810 Facial weakness; M31.6 Other giant cell arteritis; Z79.82 Long term (current) use of aspirin; Z79.52 Long term (current) use of systemic steroids; Z79.899 Other long term (current) drug therapy
CPT/HCPCS: 10081